=== PATIENT | female | born 1960 | race Caucasian/White ===

== ENCOUNTER 2016-12-10 17:29 | Emergency (ER) | payer OTHER ==
[~2016-12-10] VITALS: Ht 177.8 cm; Wt 113.6 kg
[~2016-12-10 17:29] MED LIST: LIDO20SO MT
[2016-12-10 17:34] VITALS: BP 129/89; PULSE 108; RESP 18; O2SAT 98
--- NOTE | 2016-12-10 18:50 | ED.REPORT ---
HPI-Overdose/Alcohol Toxicity Date of Service December 10, 2016 ED Provider: Efrem Marshall MD A 56 year old female with a medical history including fibromyalgia, diabetes, methamphetamine use, alcohol abuse, and alcohol withdrawal seizures presents to the ED for a medical screening before entering [facility] for alcohol detox. The patient currently reports shakiness, malaise, and abdominal pain. She has not eaten in "a couple of days." Her last alcoholic drink was a small amount just prior to arrival and her last methamphetamine use was early this morning. The patient denies dysuria, nausea, vomiting, or other symptoms. She has had previous alcohol detox attempts. Nursing Notes Stated Complaint: DETOX ALCOHOL/CRISIS CENTER Chief Complaint: Substance Abuse Nursing Notes Reviewed: Yes ([employer] not reconciled) Allergies: Coded Allergies: No Known Allergies (Verified , 12/10/16) Scheduled PRN Lidocaine HCl (Lidocaine HCl Viscous) 20 Mg/1 Ml Solution 15 ML MT [id number] PRN PRN For Pain 15 mL swished in the mouth and spit out no more frequently than every 3 hours General Time Seen by Provider: 18:47 Chief Complaint Other (Medical Screening For [facility] Alcohol Detox ) Hx Obtained From: Patient Arrived By: Walk-in Onset Occurred: Just prior to arrival Symptom Duration: Since onset Location: : Abdomen Quality: Painful Severity: Current: Moderate Severity: Maximum: Moderate Pertinent Negative: Relieved by nothing Related History: Reports: Alcoholism, EtOH withdrawal, Substance abuse Recent Healthcare: No recent doctor visit Similar Sx Previous: Yes Past Medical History Past Medical History Fibromyalgia Arthritis Recent arm fracture, not followed up History of EtOH withdrawal and abuse (distant history of EtOH withdrawal seizures, last alcohol withdrawal admission to the hospital was 2013, did not require Precedex or ICU care and did well without seizures) Reports: Diabetes mellitus (Type 2) Past Surgical History gastric bypass Reports: Hysterectomy Smoking History Current Every Day Smoker Social History Alcohol Use: >5 per day Drug Use: In recovery, Meth Other Social History: Ambulatory Status Independent Review of Systems Review of Systems Note: + Medical screening for [facility] for alcohol detox, shakiness Constitutional: Reports: Malaise, Denies: Fever Respiratory: Denies: Non-productive cough, Shortness of breath GI: Reports: Abdominal pain, Denies: Diarrhea, Nausea, Vomiting Complete sys rev & neg: except as marked. Physical Exam Initial Vital Signs Vital Signs (First) Date Time Temp Pulse Resp B/P Pulse Ox O2 Delivery O2 Flow Rate FiO2 12/10/16 17:34 35.8 108 18 129/89 98 Room Air Initial VS: Reviewed, Vital signs abnormal (tachycardic) Head / Eyes: Atraumatic, Normocephalic Neck: Supple, Full range of motion General/Constitutional: Awake, Alert Distress / Hydration: Positive: Dehydration moderate Appears fatigued Patient is not altered Respiratory / Chest: Breath sounds NL, Breath sounds = bilat, No respiratory distress Cardiovascular: Regular rhythm, Heart sounds NL Heart Rate / Rhythm: Positive: Tachycardia Abdomen: Soft, Non-tender Neurologic: Oriented X3, Speech NL Movement Abnormality: Negative: Tremor Patient is speaking normally Psychiatric: Affect NL, Mood NL Skin: Warm, Dry No diaphoresis Possible mild jaundice Lower Extremity / Pelvis / MS: Inspection NL, No edema Interpretation & Diagnostics URINE DRUG SCREEN: Benzodiazepines (BZO) * Negative Barbituates (BAR) * Negative Cocaine (CINTHYA) * Negative Marijuana (THC) * Negative Methamphetamine (MET) * Positive Opiates (OPI) * Negative Methadone (MTD) * Negative Tricyclic Antidepressants (TCA) * Negative Oxycodone (OXY) * Negative Ecstasy (MDMA) * Negative Phencyclidine (PCP) * Negative Amphetamines (AMP) * Positive Lab Results Interpretation Result Diagram: 12/10/16193912/10/161939 Test 12/10/16 19:40 White Blood Count 8.9th/mm3 (3.8-10.1) Red Blood Count 5.33mil/mm3 (3.90-5.20) Hemoglobin 13.9g/dL (12.0-15.6) Hematocrit 42.0% (35.0-46.0) Mean Corpuscular Volume 78.8fL (81-100) Mean Corpuscular Hemoglobin 26.1pg (27.0-35.0) Mean Corpuscular Hemoglobin Concent 33.1% (32.0-37.0) Red Cell Distribution Width 15.5% (12.3-15.4) Platelet Count 323bil/L (150-400) Neutrophils (%) (Auto) 67.3% (40-74) Lymphocytes (%) (Auto) 19.5% (14-46) Monocytes (%) (Auto) 8.8% (4-12) Eosinophils (%) (Auto) 3.6% (0-5) Basophils (%) (Auto) 0.6% (0-3) Prothrombin Time 10.3sec (8.1-12.5) Prothromb Time International Ratio 0.96ratio Hold Urine Received (Received) Sodium Level 131mEq/L (134-144) Potassium Level 4.0mEq/L (3.5-5.2) Chloride Level 87mEq/L (97-108) Carbon Dioxide Level 28mmol/L (18-29) Blood Urea Nitrogen 11mg/dL (6-24) Creatinine 1.09mg/dL (0.57-1.00) Estimat Glomerular Filtration Rate 75mL/min (>59) Glucose Level 200mg/dL (60-99) Calcium Level 9.2mg/dL (8.5-10.1) Total Bilirubin 0.4mg/dL (0.0-1.2) Aspartate Amino Transf (AST/SGOT) 21U/L (0-50) Alanine Aminotransferase (ALT/SGPT) 17U/L (0-32) Alkaline Phosphatase 128U/L (25-150) Total Protein 7.9g/dL (6.4-8.4) Albumin 4.5g/dL (3.4-5.0) Hold Marina Top Tube Received (Received) Alcohols < 10mg/dL (0-10) Lab Results Interpretation: CBC normal CMP mild hyperglycemia Re-Eval/Medical Decision Med Decision/Clinical Course This is a 56-year-old female presents to the emergency department requesting detox mainly from alcohol, but she admits to using methamphetamines as well. She has had a distant history of alcohol related seizures in years past, but has had a hospitalization in 2014 was uncomplicated. She thinks she may have had a seizure while in nursing home in the past several years, but goes on indicates she did not require any medical therapy or hospitalization were seems a bit unusual for true alcohol-related withdrawal. Patient reports urinary has a bed at detox. She denies any other complaints except for poor intake the past couple days and feels a bit dehydrated. She appears anxious, and is mildly tachycardic, in mild withdrawal-but is mentating normally and in no overt distress, is not diaphoretic, and does not have tremor or signs of severe withdrawal. She did seem restless inside an IV placed, she received hydration while screening labs were drawn-to see the single milligram of lorazepam initially, but a reevaluation was still in mild withdrawal, so second dose was given several hours later, and the patient then fell asleep and was observed area and she did quite well. She seems to be a reasonable candidate in the for charged to crisis respite, she is completed screening been accepted there. She is being discharged on a standard lorazepam taper and is discharged in improved condition. Source of Hx: Old records Re-Evaluation/Progress #1: Time of Eval: 20:40 Patient Status: Condition improved Re-Evaluation/Progress Note: The patient reports a headache and nausea. Re-Evaluation/Progress #2: Time of Eval: 21:16 Patient Status: Condition improved Re-Evaluation/Progress Note: Patient is feeling better and sleeping soundly Re-Evaluation/Progress #3: Time of Eval: 00:30 Patient Status: Condition improved Re-Evaluation/Progress Note: Discussed with patient lab results, diagnosis, and plan for discharge to crisis respite. Follow-up and return to the ER instructions given. Patient agrees with plan for care and all questions were addressed. Differential Diagnosis: Positive: Alcohol abuse, Negative: Overdose, accidental, Overdose, acetominophen, Overdose, benzodiazapine, Personality disorder, Schizophrenia, Substance abuse disorder Counseled Regarding: Diagnosis, Lab results, Need for follow-up, When/why to return to ED Discharge & Departure Impression: Primary Impression: Alcohol withdrawal Complication of substance-induced condition: uncomplicated Qualified Code: F10.230 - Alcohol dependence with withdrawal, uncomplicated Additional Impressions: Alcohol abuse Substance abuse Disposition: Home Discharge Condition All VS Reviewed: Yes Condition: Improved Additional Instructions: 1. Go directly to crisis respite/sobering services. 2. A prescription for a taper of lorazepam to help prevent withdrawal. 3. Continue your regular prescriptions. 4. Return if new or worsening symptoms. Referrals: Bhavya Parry MD (PCP) [facility] Scribe Attestation Portions of this note were transcribed by Sarah Hernández. I, Dr. Marshall, personally performed the history, physical exam, and medical decision-making; I reviewed and confirmed the accuracy of the information in the transcribed note. Signed by: Adin Duong, 12/11/2016, 01:55 copies to: Bhavya Parry MD ; [facility] Efrem Marshall MD December 10, 2016 18:50 SARAH HERNÁNDEZ December 10, 2016 18:57
[2016-12-10] MEDS ORDERED: 0.9% Sodium Chloride 1,000 ML IV ONE (19:00)
[2016-12-10 19:54] LABS: BASOPHILS % (AUTO) 0.6 % (0-3); EOSINOPHILS % (AUTO) 3.6 % (0-5); MONOCYTES % (AUTO) 8.8 % (4-12); Mean Corpuscular Hemoglobin 26.1 pg (27.0-35.0); Mean Corpuscular Volume 78.8 fL (81-100); NEUTROPHILS % (AUTO) 67.3 % (40-74); Platelet Count 323 bil/L (150-400)
[2016-12-10 20:10] LABS: INR 0.96 ratio
[2016-12-10] MEDS ORDERED: _LORazepam 2 MG Tablet PO SCH (21:20)
[2016-12-11 00:50] VITALS: BP 125/82; PULSE 100; RESP 17; O2SAT 99
== END 2016-12-11 00:51 | disposition other institution (70) ==
LOC: SED 17:29
DX: F10.230 Alcohol dependence with withdrawal, uncomplicated (principal); F19.10 Other psychoactive substance abuse, uncomplicated; R10.9 Unspecified abdominal pain; R53.81 Other malaise; E11.9 Type 2 diabetes mellitus without complications; M79.7 Fibromyalgia; F17.200 Nicotine dependence, unspecified, uncomplicated
CPT/HCPCS: 36415; 80053; 81002; 85025; 85610; 96361; 96374; 96376; 99284; G0480; J2060; J7030

== ENCOUNTER 2017-03-07 13:50 | Emergency (ER) | payer OTHER ==
[~2017-03-07] VITALS: Ht 177.8 cm; Wt 112.7 kg
[2017-03-07 13:55] VITALS: BP 143/76; PULSE 105; RESP 20; O2SAT 99
--- NOTE | 2017-03-07 16:25 | ED.REPORT ---
HPI-Psychiatric Illness Date of Service Mar 07, 2017 ED Provider: José Miguel Olvera DO A 56 year old female with a history of dissociation disorder, PTSD, depression, alcohol abuse with withdrawal seizures, methamphetamine abuse and suicidal attempts presents to the ED complaining requesting detox from alcohol and methamphetamines. The pt had been clean for 90 days but relapsed five days ago. The pt last used methamphetamines this morning and has had five 24 ounce cans of alcohol since midnight. The pt has arranged for a bed at [facility]. She admits to recent suicidal ideation and depression, including driving while intoxicated recently in a suicide attempt. The pt is currently seeking help for these conditions. She is currently on an antidepressant and receives care psych care from her PCP. States she no longer has a way to commit suicide as she lost her care after DUI. Nursing Notes Stated Complaint: DETOX Chief Complaint: Substance Abuse Nursing Notes Reviewed: Yes Allergies: Coded Allergies: No Known Allergies (Verified , 12/10/16) Scheduled PRN Lidocaine HCl (Lidocaine HCl Viscous) 20 Mg/1 Ml Solution 15 ML MT [id number] PRN PRN For Pain 15 mL swished in the mouth and spit out no more frequently than every 3 hours General Time Seen by MD: 16:21 Chief Complaint Other (Detox request) Hx Obtained From: Patient Arrived By: Walk-in Onset Occurred: 5 days ago Symptom Duration: Since onset Recent Healthcare: Recent doctor visit Similar Sx Previous: Yes Risk-Psychiatric Illness Suicide Risk Stratification Suicide Risk Factors - Adult: : Alcohol use: Previous attempt: Substance abuse RF Statements: Risk factors reviewed Past Medical History Past Medical History PTSD Dissociation disorder Suicidal attempts Fibromyalgia Arthritis Recent arm fracture, not followed up History of EtOH withdrawal and abuse (distant history of EtOH withdrawal seizures, last alcohol withdrawal admission to the hospital was 2013, did not require Precedex or ICU care and did well without seizures) Kidney disease Neuropathy Reports: Diabetes mellitus Past Surgical History gastric bypass Reports: Hysterectomy Smoking History Current Every Day Smoker Social History Alcohol Use: >5 per day Drug Use: Meth Other Social History: Ambulatory Status Independent Review of Systems Respiratory: Denies: Non-productive cough, Shortness of breath Cardiovascular: Denies: Chest pain GI: Denies: Abdominal pain, Vomiting Skin: Denies Rash Psychiatric: Reports: Depression, Suicidal ideation Complete sys rev & neg: except as marked. Physical Exam Initial Vital Signs Vital Signs (First) Date Time Temp Pulse Resp B/P Pulse Ox O2 Delivery O2 Flow Rate FiO2 03/07/17 13:55 36.8 105 20 143/76 99 Room Air Initial VS: Reviewed General/Constitutional: Awake, Alert Neurologic: Oriented X3, Speech NL, No motor deficits, No sensory deficits Psychiatric: Not homicidal depressed affect Head / Eyes: Atraumatic, Normocephalic, PERRL, EOMI ENT: Atraumatic, Airway patent, Mucous membranes moist Respiratory / Chest: Atraumatic, Breath sounds NL, Breath sounds = bilat, No respiratory distress Cardiovascular: Heart rate NL, Regular rhythm, Heart sounds NL Abdomen: Atraumatic, Soft, Non-tender Skin: Atraumatic, Color NL, No rash, Warm, Dry Neck: Atraumatic, Supple, Full range of motion Back: Atraumatic, Full range of motion Upper Extremity / MS: Atraumatic, Full range of motion Lower Extremity / Pelvis / MS: Atraumatic, Full range of motion Interpretation & Diagnostics Lab Results Interpretation Test 03/07/17 16:55 Hold Urine Received (Received) Re-Eval/Medical Decision Med Decision/Clinical Course Pt not actively suicidal but very discouraged with current situation. Has mental health provider/PCP who she plans to f/u with for this. Treated with hydroxyzine for anxiety and lorazepam for withdrawal and symptoms improved. Given lorazepam taper for use at crisis [facility] although I doubt she will withdraw after only 4 days of relapse. Source of Hx: Old records Re-Evaluation/Progress #1: Time of Eval: 16:21 Patient Status: Condition improved Re-Evaluation/Progress Note: The diagnosis and plan to discharge to Crisis pending lab work are discussed during the initial interview. The pt understands and agrees with the plan. All questions are addressed at this time. Re-Evaluation/Progress #2: Time of Eval: 21:38 Re-Evaluation/Progress Note: Pt rechecked, who is requesting medication for nausea and withdrawal. The plan for discharge to Crisis is further discussed. Consultation #1: Call Returned at: 17:08 Business Services Sales Agent: Will see patient, Agrees with eval Note: Spoke to social media executive regarding pt's case. Social work will see pt and offer resources. Consultation #2: Call Returned at: 19:30 Note: Spoke with social media executive regarding pt's case. Pt has been accepted at Crisis. Counseled Regarding: Diagnosis, Lab results, Need for follow-up, When/why to return to ED Discharge & Departure Impression: Primary Impression: Alcohol abuse Additional Impressions: Methamphetamine abuse Suicidal thoughts Depression Depression Type: unspecified Qualified Code: F32.9 - Major depressive disorder, single episode, unspecified )( Condition at Discharge: Clear for alcohol rehab, Clear for drug rehab Disposition: Home Discharge Condition All VS Reviewed: Yes Condition: Stable Patient Instructions: Abuse of Alcohol (ED), Methamphetamine Abuse (ED) Additional Instructions: Thank you for allowing us to be a part of your care. Proceed directly to [facility]. Use the Ativan taper as directed. Return to the emergency department if you develop any new or worsening symptoms such as fever, seizures, nausea, vomiting or abdominal pain. Referrals: Bhavya Parry MD (PCP) [facility] Scribe Attestation Portions of this note were transcribed by Mariah Landeros. I, Dr. Olvera personally performed the history, physical exam and medical decision-making; I reviewed and confirmed the accuracy of the information in the transcribed note. copies to: Bhavya Parry MD ; [facility] José Miguel Olvera DO Mar 07, 2017 16:25 MARIAH LANDEROS Mar 07, 2017 16:44
[2017-03-07 18:00] VITALS: BP 117/59; PULSE 77; RESP 20; O2SAT 99
[2017-03-07 21:12] VITALS: BP 115/78; PULSE 92; RESP 19; O2SAT 97
[2017-03-07] MEDS ORDERED: _LORazepam 2 MG Tablet PO SCH (21:20)
[2017-03-07] MEDS ORDERED: LORazepam 2 mg Tablet PO ONE (21:45)
[2017-03-07] MEDS ORDERED: hydrOXYzine Pamoate 25 mg Capsule PO ONE (21:45)
== END 2017-03-07 23:14 | disposition home or self-care (01) ==
LOC: SED 13:50
DX: F10.10 Alcohol abuse, uncomplicated (principal); F15.10 Other stimulant abuse, uncomplicated; R45.851 Suicidal ideations; F32.9 Major depressive disorder, single episode, unspecified; F43.10 Post-traumatic stress disorder, unspecified; E11.9 Type 2 diabetes mellitus without complications; F17.200 Nicotine dependence, unspecified, uncomplicated
CPT/HCPCS: 81002; 81025; 82075; 82948; 99284; Q0177

== ENCOUNTER 2017-03-13 06:31 | Emergency (ER) | payer OTHER ==
[~2017-03-13] VITALS: Ht 177.8 cm; Wt 115.5 kg
[2017-03-13 06:36] VITALS: PULSE 117; O2SAT 96
--- NOTE | 2017-03-13 06:40 | ED.REPORT ---
HPI-Overdose/Alcohol Toxicity Date of Service Mar 13, 2017 ED Provider: Efrem Marshall MD Pt is a 56 year old female with a history of depression, PTSD, dissociation disorder, methamphetamine abuse, suicidal attempts, EtOH withdrawal and abuse, and DM who presents to the the ED requesting detox from EtOH and methamphetamine. She c/o associated decreased appetite, malaise, depression, tremors, and feeling like her blood sugar is low. She denies suicidal ideation, hematochezia, and hematuria. Pt reports that she usually checks her blood sugar regularly and states that she has not eaten in 4 days. Pt presented to the ED on 03/07/17 with the same request and she was discharged to present to [facility] with diagnosis of alcohol abuse, methamphetamine abuse, suicidal thoughts, and depression. Nursing Notes Stated Complaint: DETOX Chief Complaint: Substance Abuse Nursing Notes Reviewed: Yes ([employer] not reconciled) Allergies: Coded Allergies: No Known Allergies (Verified , 12/10/16) Scheduled PRN Lidocaine HCl (Lidocaine HCl Viscous) 20 Mg/1 Ml Solution 15 ML MT [id number] PRN PRN For Pain 15 mL swished in the mouth and spit out no more frequently than every 3 hours General Time Seen by Provider: 07:28 Chief Complaint Other (Detox) Hx Obtained From: Patient Arrived By: Walk-in Onset Occurred: Onset unknown Symptom Duration: Since onset Severity: Current: No pain currently Severity: Maximum: No pain Recent Healthcare: Recent doctor visit Similar Sx Previous: Yes Past Medical History Past Medical History Notes: Last ED Visit 03/07 substance abuse Past Medical History PTSD Dissociation disorder Suicidal attempts Fibromyalgia Arthritis History of EtOH withdrawal and abuse (distant history of EtOH withdrawal seizures, last alcohol withdrawal admission to the hospital was 2013, did not require Precedex or ICU care and did well without seizures) Kidney disease Neuropathy Reports: Diabetes mellitus Past Surgical History gastric bypass Reports: Hysterectomy Smoking History Current Every Day Smoker Social History Alcohol Use: >5 per day Drug Use: Meth Other Social History: Ambulatory Status Independent Review of Systems + Decreased appetite Constitutional: Reports: Malaise GI: Denies: Hematochezia Neurologic: Reports: Shaking Psychiatric: Reports: Depression, Denies: Suicidal ideation Complete sys rev & neg: except as marked. Female: Denies: Hematuria Physical Exam Initial Vital Signs Vital Signs (First) Date Time Temp Pulse Resp B/P Pulse Ox O2 Delivery O2 Flow Rate FiO2 03/13/17 06:36 36.8 117 96 Room Air Initial VS: Reviewed, Unavailable (none on chart, ordered) Head / Eyes: Atraumatic, Normocephalic Neck: Supple, Full range of motion Extremities: Vascular intact, Neuro intact Skin: Warm, Dry, No cyanosis General/Constitutional: Awake, Alert, No acute distress Appears fatigued. Sitting upright. Tired, but answers questions. Respiratory / Chest: Atraumatic, Breath sounds NL, Breath sounds = bilat Cardiovascular: Heart rate NL, Regular rhythm, Heart sounds NL Abdomen: Atraumatic, Soft, Non-tender Neurologic: CN II - XII intact Mild tremor. Reports sensation of mild withdrawal. Psychiatric: Not suicidal, Not homicidal, No hallucinations Re-Eval/Medical Decision Med Decision/Clinical Course This is a 56 now presents requesting [facility] for detox. She is a history of intermittent alcohol and methamphetamine abuse, reports urostomy exposed. She has a history of mild withdrawal, would like some treatment. She does not appear in severe withdrawal and has a low CIWA score. Acute medical issues were identified. The patient received lorazepam she is seen by the [facility], and it appears that she has been accepted at crisis respite although we are waiting for formal time. Source of Hx: Old records Re-Evaluation/Progress : Time of Eval: 15:06 Re-Evaluation/Progress Note: Pt rechecked. Informed pt of plan for discharge. Pt understands and agrees with plan for discharge. F/U instructions and RTER warnings given. All questions addressed. Differential Diagnosis: Positive: Alcohol abuse, Intoxication, other drug, Substance abuse disorder Counseled Regarding: Diagnosis, Lab results, Need for follow-up, When/why to return to ED Discharge & Departure Impression: Primary Impression: Alcohol withdrawal Complication of substance-induced condition: uncomplicated Qualified Code: F10.230 - Alcohol dependence with withdrawal, uncomplicated Additional Impression: Methamphetamine abuse Disposition: Home Discharge Condition All VS Reviewed: Yes Condition: Stable Additional Instructions: 1. Go directly to crisis respite 2. Say away from medical methamphetamines and avoid alcohol. 3. You can take lorazepam taper as directed at crisis respite prevent withdrawal symptoms. Referrals: Bhavya Parry MD (PCP) Scribe Attestation Portions of this note were transcribed by Caity Barron. I, Dr. Marshall personally performed the history, physical exam and medical decision-making; I reviewed and confirmed the accuracy of the information in the transcribed note. Signed by: Adin Bates, 03/13/17. copies to: Bhavya Parry MD, Matthew F MD Mar 13, 2017 06:40 Caity Denny Mar 13, 2017 07:22
[2017-03-13] MEDS ORDERED: LORazepam 1 mg Tablet PO ONE (07:40)
[2017-03-13] MEDS ORDERED: Ondansetron 8 mg ODT Tablet PO ONE (09:15)
[2017-03-13] MEDS ORDERED: LORazepam 2 mg Tablet PO ONE (16:00)
[2017-03-13 18:22] VITALS: BP 148/82; PULSE 100; RESP 16; O2SAT 97
== END 2017-03-13 18:10 | disposition home or self-care (01) ==
LOC: SED 06:31
DX: F10.230 Alcohol dependence with withdrawal, uncomplicated (principal); F15.10 Other stimulant abuse, uncomplicated; F32.9 Major depressive disorder, single episode, unspecified; F43.10 Post-traumatic stress disorder, unspecified; F44.9 Dissociative and conversion disorder, unspecified; E11.40 Type 2 diabetes mellitus with diabetic neuropathy, unspecified; F17.200 Nicotine dependence, unspecified, uncomplicated

== ENCOUNTER 2017-03-18 17:45 | Emergency (ER) | payer OTHER ==
[~2017-03-18] VITALS: Ht 177.8 cm; Wt 113.6 kg
[2017-03-18 18:06] VITALS: BP 133/82; PULSE 96; RESP 14; O2SAT 98
--- NOTE | 2017-03-18 19:12 | ED.REPORT ---
HPI-Psychiatric Illness Date of Service Mar 18, 2017 ED Provider: Sohan Zamudio DO Patient is a 56 year old female with a history of diabetes, depression, alcohol abuse and seizures related to alcohol withdrawal who presents to the ED requesting medical clearance to go to [facility]. Patient states she [facility] just [facility] due to alcohol abuse and is seeking help to detox from alcohol and drugs. Patient states she is having suicidal ideations with a plan to use alcohol and drugs. Nursing Notes Stated Complaint: MENTAL HEALTH,SUICIDAL Chief Complaint: Psychiatric Complaint Nursing Notes Reviewed: Yes Allergies: Coded Allergies: No Known Allergies (Verified , 03/18/17) Scheduled Cephalexin (Cephalexin) 500 Mg Capsule 500 MG PO BID Duloxetine (Duloxetine) 20 Mg Capsule.dr 20 MG PO BID Gabapentin (Gabapentin) 800 Mg Tablet 800 MG PO TID Levothyroxine (Levothyroxine) 137 Mcg Tablet 137 MCG PO DAILY Metformin (Metformin) 500 Mg Tablet 500 MG PO BID Sulfamethoxazole/Trimeth 800-160 mg (Bactrim DS) 1 Each Tablet 1 TAB PO BID Scheduled PRN Acetaminophen (Acetaminophen) 325 Mg Tablet 325 MG PO Q4H PRN PRN For Pain Ibuprofen (Ibuprofen) 200 Mg Capsule 200 MG PO QID PRN PRN For Pain General Time Seen by MD: 19:12 Chief Complaint Suicidal ideation Hx Obtained From: Patient Arrived By: Walk-in Recent Healthcare: Recent doctor visit Similar Sx Previous: Yes Risk-Psychiatric Illness Suicide Risk Stratification Suicide Risk Factors - Adult: : Alcohol use: Previous attempt: Substance abuse RF Statements: Risk factors reviewed Past Medical History Past Medical History Notes: Last ED Visit 03/07/17 substance abuse Past Medical History PTSD Dissociation disorder Suicidal attempts Fibromyalgia Arthritis History of EtOH withdrawal and abuse (distant history of EtOH withdrawal seizures, last alcohol withdrawal admission to the hospital was 2013, did not require Precedex or ICU care and did well without seizures) Kidney disease Neuropathy Reports: Diabetes mellitus Past Surgical History gastric bypass Reports: Hysterectomy Smoking History Current Every Day Smoker Social History Alcohol Use: >5 per day Drug Use: Meth Other Social History: Ambulatory Status Independent Review of Systems Constitutional: Denies: Chills, Fever Respiratory: Denies: Non-productive cough, Shortness of breath Skin: Denies Itching, Denies Rash Psychiatric: Reports: Anxiety, Suicidal ideation Complete sys rev & neg: except as marked. Female: Denies: Physical Exam Initial Vital Signs Vital Signs (First) Date Time Temp Pulse Resp B/P Pulse Ox O2 Delivery O2 Flow Rate FiO2 03/18/17 18:06 37.0 96 14 133/82 98 03/19/17 00:01 Room Air Initial VS: Reviewed General/Constitutional: Awake, Alert Behavior: Positive: Tearful Neurologic: Oriented X3, Speech NL Abnormal Mood/Affect: Positive: Anxious, Depressed, Flat affect Abnormal Thinking / Perception: Positive: Suicidal, with plan Head / Eyes: Atraumatic, Normocephalic, PERRL, EOMI Respiratory / Chest: Atraumatic, Breath sounds NL, Breath sounds = bilat, No respiratory distress Cardiovascular: Heart rate NL, Regular rhythm, Heart sounds NL Skin: Atraumatic, Color NL, No rash, Warm, Dry Upper Extremity / MS: Atraumatic, Inspection NL Interpretation & Diagnostics Lab Results Interpretation Result Diagram: 03/18/17192603/18/171926 Test 03/18/17 19:20 03/18/17 19:27 03/18/17 19:28 Urine Color Straw (YELLOW) Urine Appearance Clear (CLEAR,HAZY) Urine pH 5.0 (5.0-8.0) Urine Specific [place] <1.005 (1.003-1.035) Urine Protein Negativemg/dL (NEG,TRACE) Urine Glucose (UA) Negativemg/dL (NEGATIVE) Urine Ketones Negativemg/dL (NEGATIVE) Urine Occult Blood Negative (NEGATIVE) Urine Nitrite Negative (NEGATIVE) Urine Bilirubin Negative (NEGATIVE) Urine Urobilinogen Normalmg/dL (NORMAL) Urine Leukocyte Esterase Trace (NEGATIVE) Urine RBC 0-2/hpf (0-2) Urine WBC 0-5/hpf (0-5) Urine Epithelial Cells Few/hpf (NONE-MOD) Urine Crystals None seen (NONE SEEN) Urine Bacteria None/hpf (NONE-FEW) Urine Hyaline Casts None/lpf (NONE) Urine Granular Casts None seen (NONE SEEN) Urine Waxy Casts None seen (NONE SEEN) Urine Red Blood Cell Casts None seen (NONE SEEN) Urine White Blood Cell Casts None seen (NONE SEEN) Urine Mucus None seen (None Seen) Urine Trichomonas None seen (NONE SEEN) Urine Yeast None (NONE SEEN) Urinalysis Comment None Urine Culture Reflexed Indicated White Blood Count 8.0th/mm3 (3.8-10.1) Red Blood Count 4.70mil/mm3 (3.90-5.20) Hemoglobin 12.5g/dL (12.0-15.6) Hematocrit 38.4% (35.0-46.0) Mean Corpuscular Volume 81.7fL (81-100) Mean Corpuscular Hemoglobin 26.6pg (27.0-35.0) Mean Corpuscular Hemoglobin Concent 32.6% (32.0-37.0) Red Cell Distribution Width 16.3% (12.3-15.4) Platelet Count 364bil/L (150-400) Neutrophils (%) (Auto) 68.0% (40-74) Lymphocytes (%) (Auto) 21.8% (14-46) Monocytes (%) (Auto) 6.8% (4-12) Eosinophils (%) (Auto) 2.6% (0-5) Basophils (%) (Auto) 0.6% (0-3) Sodium Level 133mEq/L (134-144) Potassium Level 4.7mEq/L (3.5-5.2) Chloride Level 94mEq/L (97-108) Carbon Dioxide Level 24mmol/L (18-29) Blood Urea Nitrogen 9mg/dL (6-24) Creatinine 0.84mg/dL (0.57-1.00) Estimat Glomerular Filtration Rate 101mL/min (>59) Glucose Level 116mg/dL (60-99) Calcium Level 8.9mg/dL (8.5-10.1) Total Bilirubin 0.2mg/dL (0.0-1.2) Aspartate Amino Transf (AST/SGOT) 111U/L (0-50) Alanine Aminotransferase (ALT/SGPT) 102U/L (0-32) Alkaline Phosphatase 240U/L (25-150) Total Protein 7.3g/dL (6.4-8.4) Albumin 4.0g/dL (3.4-5.0) Thyroid Stimulating Hormone (TSH) 1.560uIU/mL (0.450-4.500) Alcohols < 10mg/dL (0-10) Hold Marina Top Tube Received (Received) Re-Eval/Medical Decision Re-Evaluation/Progress #1: Time of Eval: 20:15 Re-Evaluation/Progress Note: Patient's case is being reviewed with plan to admit. Re-Evaluation/Progress #2: Time of Eval: 23:45 Re-Evaluation/Progress Note: Patient was denied due to insurance. [facility] is reviewing the patient's case. Re-Evaluation/Progress #3: Time of Eval: 00:41 )( Re-Eval Psychiatric: Clear for psych facility Re-Evaluation/Progress Note: Patient will be accepted to [facility]. Patient understands and agrees to plan. All questions were addressed. Counseled Regarding: Diagnosis, Lab results, Need for transfer Discharge & Departure Impression: Primary Impression: Suicidal thoughts )( Condition at Discharge: Clear for psych facility Disposition: Transfer, Acute Care Facility Discharge Condition All VS Reviewed: Yes Condition: Stable Referrals: Bhavya Parry MD (PCP) Adin Attestation Portions of this note were transcribed by Cat Dalal. I, Dr. Zamudio personally performed the history, physical exam and medical decision-making; I reviewed and confirmed the accuracy of the information in the transcribed note. Signed by: Adin Wells, 03/18/17 copies to: Bhavya Parry MD, Todd P DO Mar 18, 2017 19:12 Roya Dalal Mar 18, 2017 19:31
[2017-03-18 19:30] LABS: BASOPHILS % (AUTO) 0.6 % (0-3); EOSINOPHILS % (AUTO) 2.6 % (0-5); MONOCYTES % (AUTO) 6.8 % (4-12); Mean Corpuscular Hemoglobin 26.6 pg (27.0-35.0); Mean Corpuscular Volume 81.7 fL (81-100); Platelet Count 364 bil/L (150-400)
[2017-03-18 19:47] LABS: APPEARANCE,URINE CLEAR (CLEAR,HAZY); COLOR,URINE STRAW (YELLOW)
[2017-03-18 19:48] LABS: OCCULT BLOOD,URINE NEGATIVE (NEGATIVE); UROBILINOGEN,URINE NORMAL (NORMAL)
[2017-03-18] MEDS ORDERED: IBUP200C PO (21:27)
[2017-03-18] MEDS ORDERED: GABA800T2 PO (21:27)
[2017-03-18] MEDS ORDERED: DULO20CA18 PO (21:27)
[2017-03-18] MEDS ORDERED: CEPH500C PO (21:27)
[2017-03-18] MEDS ORDERED: METF500T4 PO (21:27)
[2017-03-18] MEDS ORDERED: ACET325T51 PO (21:27)
[2017-03-18] MEDS ORDERED: SULF1TAB7 PO (21:27)
[2017-03-18] MEDS ORDERED: LEVO137T2 PO (21:28)
[2017-03-19 00:01] VITALS: BP 116/71; PULSE 84; RESP 16; O2SAT 98
[2017-03-19] MEDS ORDERED: Trimethoprim-Sulfa 160 mg-800 mg Tablet PO ONE (01:00)
[2017-03-19 01:22] VITALS: BP 108/72; PULSE 51; RESP 16; O2SAT 95
== END 2017-03-19 01:35 | disposition other institution (70) ==
LOC: SED 17:45
DX: R45.851 Suicidal ideations (principal); E11.40 Type 2 diabetes mellitus with diabetic neuropathy, unspecified; F43.10 Post-traumatic stress disorder, unspecified; F17.200 Nicotine dependence, unspecified, uncomplicated; Z90.710 Acquired absence of both cervix and uterus; Z79.84 Long term (current) use of oral hypoglycemic drugs
CPT/HCPCS: 36415; 80053; 81000; 81025; 82075; 84443; 85025; 87086; 90791; 99285; G0480